=== PATIENT | male | born 1940 | race Caucasian/White ===

== ENCOUNTER 2019-07-23 10:57 | Inpatient (IN) | payer MEDICARE ==
[~2019-07-23] VITALS: Ht 177.8 cm; Wt 83.9 kg
[2019-07-23] MEDS ORDERED: ATORVASTATIN CA10 MG ORAL (11:20)
[2019-07-23] MEDS ORDERED: ALPRAZOLAM0.5 MG PO (11:20)
[2019-07-23] MEDS ORDERED: Piperacillin/Tazobactam 3.375 GM in NS 110 ML IVPB ONE (12:30)
[2019-07-23 14:55] LABS: BASOPHILS % (AUTO) 0.6 % (0.0-2.0); EOSINOPHILS % (AUTO) 2.3 % (0.0-3.0); HEMOGLOBIN 14.3 G/DL (14.2-18.0); LYMPHOCYTES % (AUTO) 11.8 % (20.0-45.0); MEAN CORPUSCULAR VOLUME 78 FL (80-99); MONOCYTES % (AUTO) 9.3 % (1.0-10.0); PLATELET COUNT 274 K/UL (150-450); RED BLOOD COUNT 5.75 M/UL (4.70-6.10); RED CELL DISTRIBUTION WIDTH 18.2 % (11.6-14.8); WHITE BLOOD COUNT 13.4 K/UL (4.8-10.8)
[2019-07-23 15:04] VITALS: BP 152/65
[2019-07-23 15:05] LABS: ANION GAP 10 mmol/L (5-15); BLOOD UREA NITROGEN 20 mg/dL (7-18); CALCIUM 9.7 MG/DL (8.5-10.1); CARBON DIOXIDE 30 MMOL/L (21-32); CHLORIDE 104 MMOL/L (98-107); CREATININE 1.1 MG/DL (0.55-1.30); POTASSIUM 4.5 MMOL/L (3.5-5.1); SODIUM 144 MMOL/L (136-145)
[2019-07-23 15:10] LABS: ALANINE AMINOTRANSFERASE 27 U/L (12-78); ALBUMIN 3.7 G/DL (3.4-5.0); ALBUMIN/GLOBULIN RATIO 0.9 (1.0-2.7); ALKALINE PHOSPHATASE 88 U/L (46-116); ASPARTATE AMINO TRANSFERASE 19 U/L (15-37); BILIRUBIN,TOTAL 0.9 MG/DL (0.2-1.0)
[2019-07-23 15:51] VITALS: BP 145/66
--- NOTE | 2019-07-23 16:10 | Consultation ---
History of Present Illness General Date patient seen: Jul 23, 2019 Reason for Hospitalization: Wound Recheck/Suture Removal Present Illness HPI This is a very pleasant 78-year-old male who presented to [facility] for evaluation of his left elbow wounds that had sutures placed. As per patient he had a fall approximately 3 weeks ago and went to an outside facility where he required wound care and sutures in his left elbow. Patient states he is been well since but does have frequent falls in the past year. States that he is doing well but thought his sutures needed, noted some drainage from the wounds. In the emergency room he was identified to have an abnormal growth in his left elbow as well as prior sutures and some abrasions to his occipital scalp. Patient on laboratory data had a lactic acidosis and leukocytosis and was admitted for further care and management. Surgery was called to evaluate and assist with care. Patient seen, patient evaluated, chart reviewed Allergies: Coded Allergies: No Known Allergies (Unverified , 07/23/19) Medication History Scheduled Alprazolam* (Xanax*), 0.5 MG PO DAILY, (Reported) Atorvastatin Calcium* (Lipitor*), 10 MG ORAL BEDTIME, (Reported) Patient History History Provided By: Patient, Medical Record, PMD Healthcare decision maker N Resuscitation status Advanced Directive on File Past Medical/Surgical History Past Medical/Surgical History: (1) Infection of left elbow Review of Systems Review of Symptoms General ROS: no weight loss or fever Psychological ROS: no depression or mood changes, no memory loss Ophthalmic ROS: no visual changes or eye irritation ENT ROS: no nasal congestion, hearing loss, dizziness Allergy and Immunology ROS: no allergic symptoms or urticaria Hematological and Lymphatic ROS: no swollen glands, unusual bleeding or bruising Endocrine ROS: no polyuria, polydipsia, weight changes, temperature intolerance Respiratory ROS: no cough, shortness of breath, or wheezing Cardiovascular ROS: no chest pain or dyspnea on exertion Gastrointestinal ROS: denies abdominal pain, bright red blood in stool. Musculoskeletal ROS: no myalgias or arthralgias Neurological ROS: no TIA or stroke symptoms Dermatological ROS: no new or changing skin lesions, rashes or pruritis Physical Exam Physical Exam General appearance: alert, cooperative, no distress, appears stated age Head: Normocephalic, without obvious abnormality, scalp traumatic Eyes: conjunctivae/corneas clear. PERRL, EOM's intact. Fundi benign Throat: Lips, mucosa, and tongue normal. Teeth and gums normal Neck: supple, symmetrical, trachea midline, no adenopathy, thyroid: not enlarged, symmetric, no tenderness/mass/nodules, no carotid bruit and no JVD Lungs: clear to auscultation bilaterally Heart: regular rate and rhythm, S1, S2 normal, no murmur, click, rub or gallop Abdomen: soft, non-tender. Bowel sounds normal. No masses, no organomegaly Extremities: extremities normal, left elbow traumatic, no cyanosis or edema Pulses: 2+ and symmetric Skin: Skin color, texture, turgor normal. No rashes or lesions Neurologic: Grossly normal Last 24 Hour Vital Signs Date Time Temp Pulse Resp B/P (MAP) Pulse Ox O2 Delivery O2 Flow Rate FiO2 07/23/19 15:59 99.0 84 16 145/66 97 Room Air 07/23/19 15:51 84 16 145/66 97 Room Air 07/23/19 15:04 99.0 85 16 152/65 93 Room Air 07/23/19 11:15 99.0 94 16 152/65 (94) 93 Room Air Laboratory Tests Test 07/23/19 14:00 White Blood Count 13.4 K/UL (4.8-10.8) H Red Blood Count 5.75 M/UL (4.70-6.10) Hemoglobin 14.3 G/DL (14.2-18.0) Hematocrit 45.0 % (42.0-52.0) Mean Corpuscular Volume 78 FL (80-99) L Mean Corpuscular Hemoglobin 24.8 PG (27.0-31.0) L Mean Corpuscular Hemoglobin Concent 31.7 G/DL (32.0-36.0) L Red Cell Distribution Width 18.2 % (11.6-14.8) H Platelet Count 274 K/UL (150-450) Mean Platelet Volume 5.6 FL (6.5-10.1) L Neutrophils (%) (Auto) 76.0 % (45.0-75.0) H Lymphocytes (%) (Auto) 11.8 % (20.0-45.0) L Monocytes (%) (Auto) 9.3 % (1.0-10.0) Eosinophils (%) (Auto) 2.3 % (0.0-3.0) Basophils (%) (Auto) 0.6 % (0.0-2.0) Sodium Level 144 MMOL/L (136-145) Potassium Level 4.5 MMOL/L (3.5-5.1) Chloride Level 104 MMOL/L (98-107) Carbon Dioxide Level 30 MMOL/L (21-32) Anion Gap 10 mmol/L (5-15) Blood Urea Nitrogen 20 mg/dL (7-18) H Creatinine 1.1 MG/DL (0.55-1.30) Estimat Glomerular Filtration Rate mL/min (>60) Glucose Level 108 MG/DL (74-106) H Lactic Acid Level 2.30 mmol/L (0.4-2.0) H Calcium Level 9.7 MG/DL (8.5-10.1) Total Bilirubin 0.9 MG/DL (0.2-1.0) Aspartate Amino Transf (AST/SGOT) 19 U/L (15-37) Alanine Aminotransferase (ALT/SGPT) 27 U/L (12-78) Alkaline Phosphatase 88 U/L (46-116) Total Protein 7.6 G/DL (6.4-8.2) Albumin 3.7 G/DL (3.4-5.0) Globulin 3.9 g/dL Albumin/Globulin Ratio 0.9 (1.0-2.7) L Height (Feet): 5 Height (Inches): 10.00 Weight (Pounds): 215 Assessment/Plan Problem List: (1) Infection of left elbow ICD Codes: M00.9 - Pyogenic arthritis, unspecified SNOMED: 39535001, [id number] (2) Cellulitis of left elbow Assessment & Plan: This is a 78-year-old male status post fall approximately 3 weeks ago who sustained an injury to his left elbow with a laceration that was open and from my understanding reapproximated outside facility. Patient now presents with an abnormal growth as well as cellulitis and potential abscess of the left elbow. Patient with leukocytosis and lactic acidosis. Will obtain a CT scan of the left upper extremity to evaluate for underlying abscess and definition of the abnormal growth. Okay for diet for now. IV fluids IV antibiotics May require surgical intervention with excision of abnormal growth as well as possible drainage of left elbow will follow with recs thank you ICD Codes: L03.114 - Cellulitis of left upper limb SNOMED: [id number] Hipolito Gardner Jul 23, 2019 16:10
[2019-07-23 16:15] VITALS: BP 177/95
--- NOTE | 2019-07-23 16:44 | Emergency Room Report ---
History of Present Illness General Chief Complaint: Wound Recheck/Suture Removal Source: Patient Present Illness HPI 78-year-old male presents ED for evaluation. States he is here for suture removal. Had sutures placed in his left elbow. secondary to fall a few weeks ago he had a mechanical trip and fall 3 weeks ago and had sutures placed at another ER. States he was told to come back in 1 week to have them removed but he forgot. So he came here. States it was bleeding yesterday. Denies pain. Denies fevers or chills. no other aggravating or relieving factors. Denies any other associated symptoms Allergies: Coded Allergies: No Known Allergies (Unverified , 07/23/19) Patient History Past Medical History: CVA/TIA Past Surgical History: none Pertinent Family History: none Social History: Denies: smoking, alcohol use, drug use Immunizations: UTD Reviewed Nursing Documentation: PMH: Agreed; PSxH: Agreed Nursing Documentation-PMH Past Medical History: No History, Except For Hx Cancer: No Hx Gastrointestinal Problems: No Hx Cerebrovascular Accident: Yes - may 2019 Review of Systems All Other Systems: negative except mentioned in HPI Physical Exam Vital Signs Date Time Temp Pulse Resp B/P (MAP) Pulse Ox O2 Delivery O2 Flow Rate FiO2 07/23/19 11:15 99.0 94 16 152/65 (94) 93 Room Air Sp02 EP Interpretation: reviewed, normal General Appearance: no apparent distress, alert, GCS 15, non-toxic Head: normocephalic Eyes: bilateral eye normal inspection, bilateral eye PERRL ENT: normal ENT inspection Neck: normal inspection Respiratory: chest non-tender, lungs clear, normal breath sounds, speaking full sentences Cardiovascular #1: regular rate, rhythm, no edema Gastrointestinal: normal bowel sounds, non tender, soft, non-distended, no guarding, no rebound Rectal: deferred Genitourinary: no CVA tenderness Musculoskeletal: normal range of motion, swelling - erythema/induration L elbow. sutures in place. subcutaneous fat extruding from wound with purulent discharge noted Neurologic: alert, oriented x3, responsive, motor strength/tone normal, sensory intact, speech normal Psychiatric: normal inspection Skin: other - erythema/induration surrounding L elbow Lymphatic: normal inspection Medical Decision Making Diagnostic Impression: Primary Impression: Cellulitis of left elbow ER Course Hospital Course 78 yo M presents to ED c/o swelling/discharge from L elbow Differential diagnoses include: Cellulitis, abscess, rash. Clinical course Patient placed on stretcher. After initial history, exam reveals male in no acute distress. There is surrounding erythema and induration to a suture line on the distal aspect of the elbow. There is subcutaneous fat extruding from the suture line with purulent discharge. There is no limited range of motion noted. No tenderness. I ordered labs, wound cx, xrays of L elbow labs reviewed - leukocytosis, Hb/Hct stable, no electrolyte abnormalities. antibiotics given. Dr Gardner will consult Case discussed with Dr Rubi and he agreed to accept the patient to his service for further care and support Diagnosis - cellulitis of L elbow Patient admitted to floor in serious condition Labs Test 07/23/19 14:00 07/23/19 16:16 White Blood Count 13.4 K/UL (4.8-10.8) Red Blood Count 5.75 M/UL (4.70-6.10) Hemoglobin 14.3 G/DL (14.2-18.0) Hematocrit 45.0 % (42.0-52.0) Mean Corpuscular Volume 78 FL (80-99) Mean Corpuscular Hemoglobin 24.8 PG (27.0-31.0) Mean Corpuscular Hemoglobin Concent 31.7 G/DL (32.0-36.0) Red Cell Distribution Width 18.2 % (11.6-14.8) Platelet Count 274 K/UL (150-450) Mean Platelet Volume 5.6 FL (6.5-10.1) Neutrophils (%) (Auto) 76.0 % (45.0-75.0) Lymphocytes (%) (Auto) 11.8 % (20.0-45.0) Monocytes (%) (Auto) 9.3 % (1.0-10.0) Eosinophils (%) (Auto) 2.3 % (0.0-3.0) Basophils (%) (Auto) 0.6 % (0.0-2.0) Sodium Level 144 MMOL/L (136-145) Potassium Level 4.5 MMOL/L (3.5-5.1) Chloride Level 104 MMOL/L (98-107) Carbon Dioxide Level 30 MMOL/L (21-32) Anion Gap 10 mmol/L (5-15) Blood Urea Nitrogen 20 mg/dL (7-18) Creatinine 1.1 MG/DL (0.55-1.30) Estimat Glomerular Filtration Rate mL/min (>60) Glucose Level 108 MG/DL (74-106) Lactic Acid Level 2.30 mmol/L (0.4-2.0) Calcium Level 9.7 MG/DL (8.5-10.1) Total Bilirubin 0.9 MG/DL (0.2-1.0) Aspartate Amino Transf (AST/SGOT) 19 U/L (15-37) Alanine Aminotransferase (ALT/SGPT) 27 U/L (12-78) Alkaline Phosphatase 88 U/L (46-116) Total Protein 7.6 G/DL (6.4-8.2) Albumin 3.7 G/DL (3.4-5.0) Globulin 3.9 g/dL Albumin/Globulin Ratio 0.9 (1.0-2.7) Last Vital Signs Date Time Temp Pulse Resp B/P (MAP) Pulse Ox O2 Delivery O2 Flow Rate FiO2 07/23/19 15:59 99.0 84 16 145/66 97 Room Air Status: improved Disposition: ADMITTED INPATIENT Condition: Serious Referrals: NON PHYSICIAN (PCP) Charli Covarrubias MD Jul 23, 2019 16:44
[2019-07-23 17:00] VITALS: BP_SYST 158; BP_DIAS 63; BP_DIAS 83
[2019-07-23 17:10] LABS: INR 2.1 (0.9-1.1)
[2019-07-23] MEDS: metFORMIN 500mg tab ORAL SCH (17:53)
[2019-07-23] MEDS: hydroCHLOROthiazide 12.5mg TAB ORAL SCH (17:55)
[2019-07-23] MEDS ORDERED: Vancomycin 2gm/D5W 550ml IVPB ONE ×2 (18:00)
[2019-07-23] MEDS: Warfarin Sodium 4mg ORAL SCH (18:11)
[2019-07-23 20:00] VITALS: BP 144/75
[2019-07-23] MEDS: ALPRAZolam 0.5mg tab ORAL PRN (21:04)
[2019-07-23] MEDS: Atorvastatin 80mg tab ORAL SCH (21:04)
[2019-07-23] MEDS: NovoLOG Insulin Flexpen SUBQ SCH (21:07)
[2019-07-24] VITALS (8 sets, daily range): BP systolic 115–149; BP diastolic 66–78
[2019-07-24] MEDS: NovoLOG Insulin Flexpen SUBQ SCH ×4 (06:58→21:14)
[2019-07-24 07:18] LABS: INR 1.9 (0.9-1.1)
[2019-07-24 07:21] LABS: BASOPHILS % (AUTO) 0.5 % (0.0-2.0); EOSINOPHILS % (AUTO) 2.1 % (0.0-3.0); HEMATOCRIT 42.6 % (42.0-52.0); HEMOGLOBIN 13.4 G/DL (14.2-18.0); LYMPHOCYTES % (AUTO) 12.8 % (20.0-45.0); MEAN CORPUSCULAR VOLUME 79 FL (80-99); MONOCYTES % (AUTO) 12.4 % (1.0-10.0); NEUTROPHILS % (AUTO) 72.3 % (45.0-75.0); PLATELET COUNT 249 K/UL (150-450); RED BLOOD COUNT 5.37 M/UL (4.70-6.10); RED CELL DISTRIBUTION WIDTH 18.2 % (11.6-14.8); WHITE BLOOD COUNT 11.8 K/UL (4.8-10.8)
[2019-07-24 07:38] LABS: ALANINE AMINOTRANSFERASE 24 U/L (12-78); ALBUMIN 3.1 G/DL (3.4-5.0); ALBUMIN/GLOBULIN RATIO 0.8 (1.0-2.7); ALKALINE PHOSPHATASE 72 U/L (46-116); ANION GAP 11 mmol/L (5-15); ASPARTATE AMINO TRANSFERASE 18 U/L (15-37); BILIRUBIN,TOTAL 1.6 MG/DL (0.2-1.0); BLOOD UREA NITROGEN 16 mg/dL (7-18); CALCIUM 8.9 MG/DL (8.5-10.1); CARBON DIOXIDE 29 MMOL/L (21-32); CHLORIDE 102 MMOL/L (98-107); CREATININE 1.1 MG/DL (0.55-1.30); POTASSIUM 3.5 MMOL/L (3.5-5.1); SODIUM 142 MMOL/L (136-145)
[2019-07-24 07:39] LABS: BILIRUBIN,DIRECT 0.3 MG/DL (0.0-0.3)
[2019-07-24] MEDS: Metoprolol Succinate XL 25mg tab ORAL SCH (08:57)
[2019-07-24] MEDS: metFORMIN 500mg tab ORAL SCH ×2 (08:57→17:54)
[2019-07-24] MEDS: hydroCHLOROthiazide 12.5mg TAB ORAL SCH (08:58)
--- NOTE | 2019-07-24 10:44 | Diagnostic Imaging Report ---
Indication: Left elbow pain Findings: 3 views of the left elbow were obtained. There is soft tissue swelling in the area of the olecranon. No acute fracture or radiopaque foreign body identified. IMPRESSION: No acute fracture identified. Soft tissue swelling
--- NOTE | 2019-07-24 11:12 | Diagnostic Imaging Report ---
Indication: Left arm swelling and edema and infection. Drainage from elbow wound, abnormal growth in the left elbow Technique: No IV contrast, per referring physician request Spiral acquisitions obtained through the left arm Multiplanar reconstructions were generated. Total dose length product 1516 mGycm. CTDIvol(s) 26 mGy. Radiation dose was minimized using automated exposure control Comparison: Reference made to plain radiograph of the elbow dated 07/23/2019 Findings: There is considerable edema of the subcutaneous fat of the distal upper arm and proximal to mid forearm extending nearly to the wrist, predominantly dorsal but circumferential as well no definite discrete loculated fluid collection demonstrated, but evaluation for such is limited given the absence of IV contrast administration. There is very slight surface irregularity of the skin dorsal to the elbow joint. There is also suggestion of a small skin flap. Edema extends all the way through the fat to the superficial fascia. No definite muscular involvement but evaluation for such is limited in the absence of IV contrast. No elbow joint effusion demonstrated. No evidence of shoulder joint effusion. No definite osteolytic lesion or unusual periosteal reaction demonstrated. Incidentally noted are mild degenerative changes of the left shoulder joint. No axillary adenopathy. The visualized portions of the thorax are unremarkable. Impression: Extensive edema of the distal left upper arm and most of the left forearm. Given stated clinical history, this could represent cellulitis. This could also represent edema of hemodynamic origin or correlate with clinical findings No definite evidence of discrete fluid collection to suggest abscess. Note, however, that evaluation for such is limited in the absence of IV contrast administration. Consider sonography, repeat CT exam with contrast, or MRI if there is high clinical suspicion No findings to suggest acute osteomyelitis. Note, however, limited sensitivity of CT for such. Consider MRI if there is high clinical suspicion No evidence of joint effusion Incidental finding of minimal degenerative change of the left shoulder The CT scanner at [facility] is accredited by the [employer] and the scans are performed using protocols designed to limit radiation exposure to as low as reasonably achievable to attain images of sufficient resolution adequate for diagnostic evaluation.
--- NOTE | 2019-07-24 13:19 | Surgery Progress Note ---
Surgery Progress Note Subjective Additional Comments no acute events leukocytosis trending down states feels well CT noted. no abscess. cellulitis Objective Last 24 Hour Vital Signs Date Time Temp Pulse Resp B/P (MAP) Pulse Ox O2 Delivery O2 Flow Rate FiO2 07/24/19 09:00 Room Air 07/24/19 08:57 85 127/74 07/24/19 08:57 85 127/74 07/24/19 08:00 99.4 90 20 127/70 (89) 98 07/24/19 05:50 98.8 91 07/24/19 04:00 99.4 87 17 115/66 (82) 93 07/24/19 00:45 98.6 07/24/19 00:00 100.6 88 18 137/77 (97) 93 07/23/19 23:45 100.6 07/23/19 21:00 101.4 07/23/19 21:00 Room Air 07/23/19 20:00 100.6 95 19 144/75 (98) 92 07/23/19 17:55 90 158/83 07/23/19 17:00 90 158/83 (108) 07/23/19 16:47 Room Air 07/23/19 16:15 98.3 105 18 177/95 (122) 90 07/23/19 15:59 99.0 84 16 145/66 97 Room Air 07/23/19 15:51 84 16 145/66 97 Room Air 07/23/19 15:04 99.0 85 16 152/65 93 Room Air I&O Intake and Output 07/23/19 07/24/19 19:00 07:00 Intake Total 240 ml 240 ml Balance 240 ml 240 ml Intake Oral 240 ml 240 ml # Voids 1 5 Dressing: saturated Wound: clean Drains: other Cardiovascular: RSR Respiratory: clear Abdomen: soft, flat, non-tender, present bowel sounds Extremities: edema, tenderness, no cyanosis, pulses, other Laboratory Tests Test 07/23/19 14:00 07/23/19 14:20 07/23/19 16:16 07/24/19 04:45 White Blood Count 13.4 K/UL (4.8-10.8) H 11.8 K/UL (4.8-10.8) H Red Blood Count 5.75 M/UL (4.70-6.10) 5.37 M/UL (4.70-6.10) Hemoglobin 14.3 G/DL (14.2-18.0) 13.4 G/DL (14.2-18.0) L Hematocrit 45.0 % (42.0-52.0) 42.6 % (42.0-52.0) Mean Corpuscular Volume 78 FL (80-99) L 79 FL (80-99) L Mean Corpuscular Hemoglobin 24.8 PG (27.0-31.0) L 24.9 PG (27.0-31.0) L Mean Corpuscular Hemoglobin Concent 31.7 G/DL (32.0-36.0) L 31.4 G/DL (32.0-36.0) L Red Cell Distribution Width 18.2 % (11.6-14.8) H 18.2 % (11.6-14.8) H Platelet Count 274 K/UL (150-450) 249 K/UL (150-450) Mean Platelet Volume 5.6 FL (6.5-10.1) L 5.7 FL (6.5-10.1) L Neutrophils (%) (Auto) 76.0 % (45.0-75.0) H 72.3 % (45.0-75.0) Lymphocytes (%) (Auto) 11.8 % (20.0-45.0) L 12.8 % (20.0-45.0) L Monocytes (%) (Auto) 9.3 % (1.0-10.0) 12.4 % (1.0-10.0) H Eosinophils (%) (Auto) 2.3 % (0.0-3.0) 2.1 % (0.0-3.0) Basophils (%) (Auto) 0.6 % (0.0-2.0) 0.5 % (0.0-2.0) Sodium Level 144 MMOL/L (136-145) 142 MMOL/L (136-145) Potassium Level 4.5 MMOL/L (3.5-5.1) 3.5 MMOL/L (3.5-5.1) Chloride Level 104 MMOL/L (98-107) 102 MMOL/L (98-107) Carbon Dioxide Level 30 MMOL/L (21-32) 29 MMOL/L (21-32) Anion Gap 10 mmol/L (5-15) 11 mmol/L (5-15) Blood Urea Nitrogen 20 mg/dL (7-18) H 16 mg/dL (7-18) Creatinine 1.1 MG/DL (0.55-1.30) 1.1 MG/DL (0.55-1.30) Estimat Glomerular Filtration Rate mL/min (>60) mL/min (>60) Glucose Level 108 MG/DL (74-106) H 128 MG/DL (74-106) H Lactic Acid Level 2.30 mmol/L (0.4-2.0) H 1.80 mmol/L (0.66-2.22) Calcium Level 9.7 MG/DL (8.5-10.1) 8.9 MG/DL (8.5-10.1) Total Bilirubin 0.9 MG/DL (0.2-1.0) 1.6 MG/DL (0.2-1.0) H Aspartate Amino Transf (AST/SGOT) 19 U/L (15-37) 18 U/L (15-37) Alanine Aminotransferase (ALT/SGPT) 27 U/L (12-78) 24 U/L (12-78) Alkaline Phosphatase 88 U/L (46-116) 72 U/L (46-116) Total Protein 7.6 G/DL (6.4-8.2) 6.9 G/DL (6.4-8.2) Albumin 3.7 G/DL (3.4-5.0) 3.1 G/DL (3.4-5.0) L Globulin 3.9 g/dL 3.8 g/dL Albumin/Globulin Ratio 0.9 (1.0-2.7) L 0.8 (1.0-2.7) L Prothrombin Time 21.5 SEC (9.30-11.50) H 19.4 SEC (9.30-11.50) H Prothromb Time International Ratio 2.1 (0.9-1.1) H 1.9 (0.9-1.1) H Erythrocyte Sedimentation Rate 27 MM/HR (0-20) H Activated Partial Thromboplast Time 38 SEC (23-33) H Direct Bilirubin 0.3 MG/DL (0.0-0.3) C-Reactive Protein, Quantitative 13.7 mg/dL (0.00-0.90) H Plan Problems: (1) Infection of left elbow (2) Cellulitis of left elbow Assessment & Plan: This is a 78-year-old male status post fall approximately 3 weeks ago who sustained an injury to his left elbow with a laceration that was open and from my understanding reapproximated outside facility. Patient now presents with an abnormal growth as well as cellulitis and potential abscess of the left elbow. Patient with leukocytosis and lactic acidosis. CT noted. no abscess but likely cellulitis as noted on clinical exam sutures removed at bedside from prior closure. abnormal skin tissue removed. slow healing of prior trauma injury and underlying cellulitis. wound okay. xeroform, gauze, kerlix warp daily and prn IV fluids IV antibiotics will monitor as cellulitis may form abscess. will follow with recs thank you Hipolito Gardner Jul 24, 2019 13:19
[2019-07-24] MEDS: Warfarin Sodium 4mg ORAL SCH (17:03)
[2019-07-24] MEDS: Losartan 50mg tab ORAL SCH (17:55)
[2019-07-24] MEDS: Vancomycin 1.5gm Premix IVPB SCH (17:55)
--- NOTE | 2019-07-24 18:00 | History and Physical Report ---
DATE OF ADMISSION: 07/23/2019 HISTORY OF PRESENT ILLNESS: This is a 78-year-old male who is admitted with left elbow cellulitis. Apparently, the patient had a fall weeks ago and had sutures placed in an outside hospital. He came to this hospital and is noted that there was a discoloration of the left elbow with drainage from the surgical site, he was admitted with IV antibodies in concern about an infection. PAST MEDICAL HISTORY: Notable for CVA and hypertension. ALLERGIES: None. HOME MEDICATIONS: Include Xanax, amlodipine, Lipitor, Cymbalta, hydrochlorothiazide, losartan, Glucophage, metoprolol, and Coumadin. SURGERIES: The patient is unable to recall. REVIEW OF SYSTEMS: Denies any headaches, hematemesis, melena, hematochezia. PHYSICAL EXAMINATION: GENERAL: Reveals a obese male. VITAL SIGNS: Blood pressure 120/70, heart rate 85, respiratory rate . He is afebrile. T-max 99.4 yesterday. HEENT: Unremarkable. LUNGS: Clear breath sounds bilaterally. ABDOMEN: Soft. EXTREMITIES: There is no edema. He has dressing of that elbow with swelling in that region. LABORATORY DATA: Laboratory testing shows white count 11,000, creatinine is normal. total bilirubin 1.6. CT of the upper extremities has been obtained, which shows no definite evidence of fluid collection. IMPRESSION: 1. Cellulitis. 2. Chronic Coumadin usage. 3. Hypertension. 4. Multiple falls. 5. Previous CVA. DISCUSSION: Admitted to the hospital. We will start IV antibiotics for cellulitis. We will consult ID. Continue current medications and care including Coumadin. We will follow carefully. Surgery has been consulted. Hector Rubi M.D. DR: MARLI JOB#: [id number] CC:
[2019-07-24] MEDS: Atorvastatin 80mg tab ORAL SCH (21:11)
[2019-07-24] MEDS: ALPRAZolam 0.5mg tab ORAL PRN (22:17)
[2019-07-25 04:00] VITALS: BP 140/70
[2019-07-25] MEDS: NovoLOG Insulin Flexpen SUBQ SCH ×4 (05:59→20:30)
[2019-07-25 06:32] LABS: INR 1.8 (0.9-1.1)
[2019-07-25 08:00] VITALS: BP 121/58
--- NOTE | 2019-07-25 08:48 | Pulmonology Progress Note ---
Assessment/Plan Assessment/Plan IMPRESSION: 1. Cellulitis. 2. Chronic Coumadin usage. 3. Hypertension. 4. Multiple falls. 5. Previous CVA. DISCUSSION: Continue IV antibiotics for cellulitis. Continue current medications and care including Coumadin. I will follow carefully. Surgery followup noted; sutures removed DC planning for home in AM Subjective Interval Events: Ambulating in hallway with PT Constitutional: Reports: no symptoms HEENT: Repors: no symptoms Respiratory: Reports: no symptoms Cardiovascular: Reports: no symptoms Gastrointestinal/Abdominal: Reports: no symptoms Genitourinary: Reports: no symptoms Allergies: Coded Allergies: No Known Allergies (Unverified , 07/23/19) Objective Last 24 Hour Vital Signs Date Time Temp Pulse Resp B/P (MAP) Pulse Ox O2 Delivery O2 Flow Rate FiO2 07/25/19 04:00 99.1 89 20 140/70 (93) 96 07/24/19 23:40 99.3 85 18 149/78 (101) 97 07/24/19 21:00 Room Air 07/24/19 20:00 99.5 80 18 140/70 (93) 96 07/24/19 17:55 130/66 07/24/19 16:00 98.5 87 20 137/78 (97) 95 07/24/19 12:00 97.7 78 21 147/78 (101) 95 07/24/19 09:00 Room Air 07/24/19 08:57 85 127/74 07/24/19 08:57 85 127/74 Intake and Output 07/24/19 07/25/19 19:00 07:00 Intake Total 900 ml 475 ml Output Total 900 ml Balance 900 ml -425 ml Intake Oral 900 ml 200 ml IV Total 275 ml Output Urine Total 900 ml # Voids 2 General Appearance: no acute distress HEENT: normocephalic Respiratory/Chest: chest wall non-tender, lungs clear Cardiovascular: normal peripheral pulses, normal rate Abdomen: normal bowel sounds Microbiology Date/Time Source Procedure Growth Status 07/23/19 14:00 Blood Blood Culture - Preliminary NO GROWTH AFTER 24 HOURS Resulted 07/23/19 13:55 Blood Blood Culture - Preliminary NO GROWTH AFTER 24 HOURS Resulted 07/23/19 15:25 Elbow Left Gram Stain - Final Resulted 07/23/19 15:25 Wound Culture - Preliminary Staphylococcus Aureus Resulted Laboratory Tests 07/25/19 05:20: Prothrombin Time 18.3H, Prothromb Time International Ratio 1.8H Current Medications Medications (Trade) Dose Ordered Sig/Jaymie Route PRN Reason Start Time Stop Time Status Last Admin Dose Admin Acetaminophen (Tylenol) 650 mg Q6H PRN ORAL Mild Pain/Temp > 100.5 07/23/19 21:30 08/22/19 21:29 07/24/19 12:42 Alprazolam (Xanax) 1 mg Q8H PRN ORAL For Anxiety 07/23/19 17:00 07/30/19 16:59 07/24/19 22:17 Amlodipine Besylate (Norvasc) 10 mg DAILY ORAL 07/23/19 17:30 08/22/19 17:29 07/24/19 08:57 Atorvastatin Calcium (Lipitor) 80 mg BEDTIME ORAL 07/23/19 21:00 08/22/19 20:59 07/24/19 21:11 Dextrose (Dextrose 50%) 25 ml Q30M PRN IV Hypoglycemia 07/23/19 16:45 08/22/19 16:44 Dextrose (Dextrose 50%) 50 ml Q30M PRN IV Hypoglycemia 07/23/19 16:45 08/22/19 16:44 Duloxetine HCl (Cymbalta) 60 mg DAILY ORAL 07/24/19 09:00 08/23/19 08:59 07/24/19 08:57 Hydrochlorothiazide (Hydrodiuril) 12.5 mg DAILY ORAL 07/23/19 17:30 08/22/19 17:29 07/24/19 08:58 Insulin Aspart (NovoLOG) BEFORE MEALS AND HS SUBQ 07/23/19 21:00 08/22/19 20:59 07/25/19 05:59 Losartan Potassium (Cozaar) 50 mg DAILY ORAL 07/24/19 17:30 08/23/19 17:29 07/24/19 17:55 Metformin HCl (Glucophage) 500 mg BID ORAL 07/23/19 18:00 08/22/19 17:59 07/24/19 17:54 Metoprolol Succinate (Toprol XL) 25 mg DAILY ORAL 07/24/19 09:00 08/23/19 08:59 07/24/19 08:57 Vancomycin HCl (Vanco rx to dose) 1 ea DAILY PRN MISC Per rx protocol 07/23/19 16:45 08/22/19 16:44 Vancomycin HCl/ Dextrose 275 ml @ 137.5 mls/ hr Q24H IVPB 07/24/19 18:00 07/29/19 17:59 07/24/19 17:55 Warfarin Sodium (Coumadin) 4 mg DAILY@17 ORAL 07/23/19 18:30 07/28/19 18:29 07/24/19 17:03 Hector Rubi MD Jul 25, 2019 08:48
[2019-07-25] MEDS: hydroCHLOROthiazide 12.5mg TAB ORAL SCH (09:09)
[2019-07-25] MEDS: Losartan 50mg tab ORAL SCH (09:09)
[2019-07-25] MEDS: metFORMIN 500mg tab ORAL SCH ×2 (09:09→17:31)
[2019-07-25] MEDS: Metoprolol Succinate XL 25mg tab ORAL SCH (09:10)
[2019-07-25 12:00] VITALS: BP_SYST 107; BP_DIAS 67; BP_DIAS 69
--- NOTE | 2019-07-25 14:36 | Surgery Progress Note ---
Surgery Progress Note Subjective Additional Comments doing well. no acute events edema improving no n/v/f/c labs noted exam improved dressings c/d/i Objective Last 24 Hour Vital Signs Date Time Temp Pulse Resp B/P (MAP) Pulse Ox O2 Delivery O2 Flow Rate FiO2 07/25/19 12:00 98.1 70 20 107/69 (82) 97 07/25/19 12:00 98.3 70 20 107/67 (80) 97 07/25/19 09:10 85 121/58 07/25/19 09:09 121/58 07/25/19 09:09 85 121/58 07/25/19 09:00 Room Air 07/25/19 08:00 98.5 85 20 121/58 (79) 95 07/25/19 04:00 99.1 89 20 140/70 (93) 96 07/24/19 23:40 99.3 85 18 149/78 (101) 97 07/24/19 21:00 Room Air 07/24/19 20:00 99.5 80 18 140/70 (93) 96 07/24/19 17:55 130/66 07/24/19 16:00 98.5 87 20 137/78 (97) 95 I&O Intake and Output 07/24/19 07/25/19 19:00 07:00 Intake Total 900 ml 475 ml Output Total 900 ml Balance 900 ml -425 ml Intake Oral 900 ml 200 ml IV Total 275 ml Output Urine Total 900 ml # Voids 2 Dressing: dry Wound: clean Cardiovascular: RSR Respiratory: clear Abdomen: soft Extremities: edema, tenderness, no cyanosis, other - 1cm left elbow opening woudn clean Laboratory Tests Test 07/25/19 05:20 Prothrombin Time 18.3 SEC (9.30-11.50) H Prothromb Time International Ratio 1.8 (0.9-1.1) H Plan Problems: (1) Infection of left elbow (2) Cellulitis of left elbow Assessment & Plan: This is a 78-year-old male status post fall approximately 3 weeks ago who sustained an injury to his left elbow with a laceration that was open and from my understanding reapproximated outside facility. Patient now presents with an abnormal growth as well as cellulitis and potential abscess of the left elbow. Patient with leukocytosis and lactic acidosis. CT noted. no abscess but likely cellulitis as noted on clinical exam sutures removed at bedside from prior closure. abnormal skin tissue removed. slow healing of prior trauma injury and underlying cellulitis. wound okay. xeroform, gauze, kerlix warp daily and prn IV fluids IV antibiotics will monitor as cellulitis may form abscess. d/c planning plan for IV abx upon d/c or as per ID wound check in 1-2 weeks. okay to f/u with me in office. will follow with recs thank you Hipolito Gardner Jul 25, 2019 14:36
[2019-07-25 16:00] VITALS: BP 124/69
[2019-07-25] MEDS: Warfarin Sodium 4mg ORAL SCH (17:31)
[2019-07-25] MEDS: Vancomycin 1.5gm Premix IVPB SCH (17:32)
[2019-07-25 20:00] VITALS: BP 130/63
[2019-07-25] MEDS: Atorvastatin 80mg tab ORAL SCH (20:26)
[2019-07-25] MEDS: ALPRAZolam 0.5mg tab ORAL PRN (23:19)
[2019-07-26] VITALS: BP 124/65
[2019-07-26 04:00] VITALS: BP 128/67
[2019-07-26] MEDS: NovoLOG Insulin Flexpen SUBQ SCH ×3 (05:38→17:29)
[2019-07-26 06:51] LABS: INR 1.6 (0.9-1.1)
[2019-07-26 08:00] VITALS: BP 130/67
[2019-07-26 08:45] VITALS: BP 133/60
[2019-07-26] MEDS: Losartan 50mg tab ORAL SCH (08:45)
[2019-07-26] MEDS: metFORMIN 500mg tab ORAL SCH ×2 (08:46→17:38)
[2019-07-26] MEDS: hydroCHLOROthiazide 12.5mg TAB ORAL SCH (08:46)
[2019-07-26] MEDS: Metoprolol Succinate XL 25mg tab ORAL SCH (08:47)
--- NOTE | 2019-07-26 10:16 | Pulmonology Progress Note ---
Assessment/Plan Assessment/Plan IMPRESSION: 1. Cellulitis. 2. Chronic Coumadin usage. 3. Hypertension. 4. Multiple falls. 5. Previous CVA. DISCUSSION: DC to SNF Increase Coumadin to 5 mg daily PO abx Subjective Interval Events: Nione new Constitutional: Reports: no symptoms HEENT: Repors: no symptoms Respiratory: Reports: no symptoms Cardiovascular: Reports: no symptoms Gastrointestinal/Abdominal: Reports: no symptoms Allergies: Coded Allergies: No Known Allergies (Unverified , 07/23/19) Objective Last 24 Hour Vital Signs Date Time Temp Pulse Resp B/P (MAP) Pulse Ox O2 Delivery O2 Flow Rate FiO2 07/26/19 10:08 Room Air 07/26/19 08:47 79 133/60 07/26/19 08:47 79 133/60 07/26/19 08:45 79 133/60 (84) 07/26/19 08:45 133/60 07/26/19 08:00 98.1 85 20 130/67 (88) 96 07/26/19 04:00 97.9 79 20 128/67 (87) 94 07/26/19 00:00 97.7 79 18 124/65 (84) 94 07/25/19 21:00 99.4 07/25/19 21:00 Room Air 07/25/19 20:56 99.4 07/25/19 20:00 100.4 82 18 130/63 (85) 95 07/25/19 16:00 98.2 81 20 124/69 (87) 96 07/25/19 12:00 98.1 70 20 107/69 (82) 97 07/25/19 12:00 98.3 70 20 107/67 (80) 97 Intake and Output 07/25/19 07/26/19 19:00 07:00 Intake Total 617.5 ml 337.5 ml Output Total 800 ml Balance 617.5 ml -462.5 ml Intake Oral 480 ml 200 ml IV Total 137.5 ml 137.5 ml Output Urine Total 800 ml # Bowel Movements 2 General Appearance: no acute distress HEENT: normocephalic Respiratory/Chest: chest wall non-tender, lungs clear Cardiovascular: normal peripheral pulses, normal rate Microbiology Date/Time Source Procedure Growth Status 07/23/19 14:00 Blood Blood Culture - Preliminary NO GROWTH AFTER 48 HOURS Resulted 07/23/19 13:55 Blood Blood Culture - Preliminary NO GROWTH AFTER 48 HOURS Resulted 07/23/19 15:25 Elbow Left Gram Stain - Final Complete 07/23/19 15:25 Wound Culture - Final Staphylococcus Aureus Complete Laboratory Tests 07/26/19 06:15: Prothrombin Time 16.5H, Prothromb Time International Ratio 1.6H Current Medications Medications (Trade) Dose Ordered Sig/Jaymie Route PRN Reason Start Time Stop Time Status Last Admin Dose Admin Acetaminophen (Tylenol) 650 mg Q6H PRN ORAL Mild Pain/Temp > 100.5 07/23/19 21:30 08/22/19 21:29 07/25/19 20:26 Alprazolam (Xanax) 1 mg Q8H PRN ORAL For Anxiety 07/23/19 17:00 07/30/19 16:59 07/25/19 23:19 Amlodipine Besylate (Norvasc) 10 mg DAILY ORAL 07/23/19 17:30 08/22/19 17:29 07/26/19 08:47 Atorvastatin Calcium (Lipitor) 80 mg BEDTIME ORAL 07/23/19 21:00 08/22/19 20:59 07/25/19 20:26 Dextrose (Dextrose 50%) 25 ml Q30M PRN IV Hypoglycemia 07/23/19 16:45 08/22/19 16:44 Dextrose (Dextrose 50%) 50 ml Q30M PRN IV Hypoglycemia 07/23/19 16:45 08/22/19 16:44 Duloxetine HCl (Cymbalta) 60 mg DAILY ORAL 07/24/19 09:00 08/23/19 08:59 07/26/19 08:46 Hydrochlorothiazide (Hydrodiuril) 12.5 mg DAILY ORAL 07/23/19 17:30 08/22/19 17:29 07/26/19 08:46 Insulin Aspart (NovoLOG) BEFORE MEALS AND HS SUBQ 07/23/19 21:00 08/22/19 20:59 07/26/19 05:38 Losartan Potassium (Cozaar) 50 mg DAILY ORAL 07/24/19 17:30 08/23/19 17:29 07/26/19 08:45 Metformin HCl (Glucophage) 500 mg BID ORAL 07/23/19 18:00 08/22/19 17:59 07/26/19 08:46 Metoprolol Succinate (Toprol XL) 25 mg DAILY ORAL 07/24/19 09:00 08/23/19 08:59 07/26/19 08:47 Vancomycin HCl (Vanco rx to dose) 1 ea DAILY PRN MISC Per rx protocol 07/23/19 16:45 08/22/19 16:44 Vancomycin HCl/ Dextrose 275 ml @ 137.5 mls/ hr Q24H IVPB 07/24/19 18:00 07/29/19 17:59 07/25/19 17:32 Warfarin Sodium (Coumadin) 4 mg DAILY@17 ORAL 07/23/19 18:30 07/28/19 18:29 07/25/19 17:31 Hector Rubi MD Jul 26, 2019 10:16
[2019-07-26] MEDS ORDERED: BACTRIM DS TAB1 EAC1 ORAL (10:18)
[2019-07-26] MEDS ORDERED: GLUCOPHAGE500 MG ORAL (10:18)
[2019-07-26] MEDS ORDERED: CYMBALTA60 MG ORAL (10:18)
[2019-07-26] MEDS ORDERED: XANAX0.5 MG ORAL (10:18)
[2019-07-26] MEDS ORDERED: Metoprolol Succinate XL ORAL (10:18)
[2019-07-26 12:03] VITALS: BP 129/63
--- NOTE | 2019-07-26 12:14 | Surgery Progress Note ---
Surgery Progress Note Subjective Additional Comments doing well states pain improving no n/v/f/c edema improved comfortable Objective Last 24 Hour Vital Signs Date Time Temp Pulse Resp B/P (MAP) Pulse Ox O2 Delivery O2 Flow Rate FiO2 07/26/19 12:03 98.3 18 129/63 (85) 94 07/26/19 10:08 Room Air 07/26/19 08:47 79 133/60 07/26/19 08:47 79 133/60 07/26/19 08:45 79 133/60 (84) 07/26/19 08:45 133/60 07/26/19 08:00 98.1 85 20 130/67 (88) 96 07/26/19 04:00 97.9 79 20 128/67 (87) 94 07/26/19 00:00 97.7 79 18 124/65 (84) 94 07/25/19 21:00 99.4 07/25/19 21:00 Room Air 07/25/19 20:56 99.4 07/25/19 20:00 100.4 82 18 130/63 (85) 95 07/25/19 16:00 98.2 81 20 124/69 (87) 96 I&O Intake and Output 07/25/19 07/26/19 19:00 07:00 Intake Total 617.5 ml 337.5 ml Output Total 800 ml Balance 617.5 ml -462.5 ml Intake Oral 480 ml 200 ml IV Total 137.5 ml 137.5 ml Output Urine Total 800 ml # Bowel Movements 2 Dressing: dry Wound: clean Cardiovascular: RSR Respiratory: clear Abdomen: soft, flat, non-tender, present bowel sounds Extremities: edema, no cyanosis Laboratory Tests Test 07/26/19 06:15 Prothrombin Time 16.5 SEC (9.30-11.50) H Prothromb Time International Ratio 1.6 (0.9-1.1) H Plan Problems: (1) Infection of left elbow (2) Cellulitis of left elbow Assessment & Plan: This is a 78-year-old male status post fall approximately 3 weeks ago who sustained an injury to his left elbow with a laceration that was open and from my understanding reapproximated outside facility. Patient now presents with an abnormal growth as well as cellulitis and potential abscess of the left elbow. Patient with leukocytosis and lactic acidosis. CT noted. no abscess but likely cellulitis as noted on clinical exam sutures removed at bedside from prior closure. abnormal skin tissue removed. slow healing of prior trauma injury and underlying cellulitis. wound okay. xeroform, gauze, kerlix warp daily and prn IV fluids IV antibiotics will monitor as cellulitis may form abscess. d/c planning plan for IV abx upon d/c or as per ID wound check in 1-2 weeks. okay to f/u with me in office. will follow with recs thank you Hipolito Gardner Jul 26, 2019 12:14
[2019-07-26 16:00] VITALS: BP 112/59
[2019-07-26] MEDS: Warfarin Sodium 4mg ORAL SCH (17:29)
[2019-07-26] MEDS ORDERED: Vancomycin 1.5gm Premix IVPB SCH (18:00)
--- NOTE | 2019-07-28 19:41 | Discharge Summary ---
Discharge Summary Discharge Summary _ DATE OF ADMISSION: 07/23/2019 DATE OF DISCHARGE: 07/26/2019 DISCHARGED BY: Dr. Carolyn Rubi CONSULTANTS: Dr. Hipolito Gardner BRIEF HOSPITAL COURSE: Patient is a 78-year-old male, who was admitted with left elbow cellulitis. Apparently, patient had a mechanical fall 3 weeks ago and had sutures in place from an outside hospital. He came to [place] and was noted to have discoloration of the left elbow with drainage from the surgical site. He denied any pain. Denied fever or chills. He has medical history significant for CVA and hypertension. On evaluation at the ED, temperature was 99 F, blood pressure 152/65. Blood work showed WBC elevated to 13, hemoglobin and hematocrit were stable. There were no electrolyte abnormalities. X-ray of the left elbow did not show any fracture but had soft tissue swelling at the area of the olecranon. Wound culture was obtained. He was started on IV vancomycin. Patient was then admitted for management of left elbow cellulitis. Surgeon was consulted. CT of the ankle did not show any abscess, but likely cellulitis. Sutures were removed at bedside. Abnormal skin tissues were removed. He was given wound care. He was continued on IV antibiotics and IV fluids. Patient has chronic Coumadin use. Coumadin was continued. Blood glucose was monitored. He was given insulin sliding scale and metformin. He was continued on his antihypertensives Norvasc, metoprolol and losartan. He was given Cymbalta. He was continued on Lipitor. Wound culture showed growth of Staphylococcus aureus. Blood culture did not isolate any growth. He was given physical therapy. He was eventually discharged to [facility] acute rehab unit. FINAL DIAGNOSES: Left elbow cellulitis Chronic Coumadin use Hypertension Multiple falls Previous CVA Diabetes mellitus DISPOSITION: Patient was discharged to acute rehab. DISCHARGE MEDICATIONS: Refer to Discharge Medication List. I have been assigned to complete a discharge summary on this account, I was not involved with the patient's management.--ERIC Fuchs Jacqueline Robles NP Jul 28, 2019 19:41
== END 2019-07-26 21:35 | disposition short-term general hospital (02) | DRG 603 ==
LOC: EMR 12:25 → 3E 13:10 → EDBEDREQ 15:03
DX: L03.114 Cellulitis of left upper limb (principal); E87.2 Acidosis; Z79.01 Long term (current) use of anticoagulants; Z86.73 Personal history of transient ischemic attack (TIA), and cerebral infarction without residual deficits; I10 Essential (primary) hypertension; Z91.81 History of falling; E11.9 Type 2 diabetes mellitus without complications
CPT/HCPCS: 36415; 80053; 80202; 82248; 82962; 83605; 85025; 85610; 85651; 85730; 86140; 87040; 87070; 87181; 87205; 96365; 96366; 96367; 99285; J1815